=== PATIENT | male | born 1940 | race American Indian/Alaskan Native ===

== ENCOUNTER 2019-01-17 17:49 | Inpatient (IN) | payer MEDICARE, OTHER ==
--- NOTE | 2019-01-17 18:58 | Emergency Department Report ---
HPI - General Chief Complaint: Neuro Symptoms/Deficit Time Seen by Provider: 01/17/19 18:46 - HPI HPI: Room 6 The patient is a 78-year-old male presenting with chief complaint of dysarthria. Family states the patient was in his usual state of health the last normal time 16:30. Family states at 16:56 the patient was found to be dysarthric and EMS was called. Patient denies weakness but complains of pain in his right hip. Location: [See above] Duration: [See above] Quality: [See above] Severity: [See above] Timing: [See above] Context: [See above] Modifying factors: [See above] Associated signs and symptoms: [see above] ED Past Medical Hx - Past Medical History Hx Hypertension: Yes Hx CVA: Yes Hx Heart Attack/AMI: Yes Hx Diabetes: Yes Additional medical history: triple bypass - Surgical History Hx Open Heart Surgery: Yes Hx Internal Defibrillator: Yes Additional Surgical History: back operation, cataract surgery last week - Family History Family history: no significant (Sebastian) - Social History Smoking Status: Former Smoker (none 20 years) Substance Use Type: None - Medications Home Medications: Home Medications Medication Instructions Recorded Confirmed Last Taken Type Carvedilol [Coreg] 3.125 mg PO BID 12/10/12 12/10/12 Unknown History Cilostazol [Pletal] 50 mg PO 12/10/12 12/10/12 Unknown History Clopidogrel [Plavix] 75 mg PO QDAY 12/10/12 12/10/12 Unknown History Dexlansoprazole [Dexilant] 60 mg PO QDAY 12/10/12 12/10/12 Unknown History Dutasteride (Nf) [Avodart (Nf)] 0.5 mg PO 12/10/12 12/10/12 Unknown History Furosemide [Lasix] 20 mg PO DAILY 12/10/12 12/10/12 Unknown History Lisinopril [Zestril TAB] 5 mg PO QDAY 12/10/12 12/10/12 Unknown History Loratadine [Claritin RAPDIS] 10 mg PO QDAY 12/10/12 12/10/12 Unknown History Metformin HCl [metFORMIN ER] 500 mg PO BID 12/10/12 12/10/12 Unknown History Ranitidine HCl [Ranitidine] 150 mg PO BID 12/10/12 12/10/12 Unknown History Simvastatin 20 mg PO QDAY 12/10/12 12/10/12 Unknown History Warfarin [Coumadin] 1 mg PO QDAY 12/10/12 12/10/12 Unknown History Warfarin [Coumadin] 5 mg PO QDAY 12/10/12 12/10/12 Unknown History traMADol [Ultram 50 MG tab] 12/10/12 12/10/12 Unknown History Difluprednate [Durezol 0.05%] 1 drop OD BID 12/11/12 12/11/12 Unknown History Nepafenac [Ilevro 0.3%] 1 drop OD QDAY 12/11/12 12/11/12 Unknown History Aspirin [Aspirin BABY CHEW TAB] 81 mg PO QDAY #60 tab.chew 12/15/12 Unknown Rx Carvedilol [Coreg] 3.125 mg PO BID #60 tablet 12/15/12 Unknown Rx Clopidogrel [Plavix] 75 mg PO QDAY #30 tablet 12/15/12 Unknown Rx Lisinopril [Zestril TAB] 5 mg PO QDAY #30 tablet 12/15/12 Unknown Rx Simvastatin (Nf) [Zocor TAB] 20 mg PO QDAY #30 tablet 12/15/12 Unknown Rx ED Review of Systems ROS: Stated complaint: POSS TIA Other details as noted in HPI Constitutional: no symptoms reported Eyes: denies: eye pain ENT: denies: throat pain Respiratory: no symptoms reported Cardiovascular: denies: chest pain Endocrine: no symptoms reported Neurological: other (dysarthria) Physical Exam - Physical Exam Physical Exam: GENERAL: The patient is well-developed well-nourished male lying on stretcher with obvious dysarthria present HEENT: Normocephalic. Atraumatic. Extraocular motions are intact. Patient has moist mucous membranes. NECK: Supple. Trachea midline CHEST/LUNGS: Clear to auscultation. There is no respiratory distress noted. HEART/CARDIOVASCULAR: Regular. There is no tachycardia. There is no gallop rub or murmur. ABDOMEN: Abdomen is soft, nontender. Patient has normal bowel sounds. There is no abdominal distention. SKIN: There is no rash. There is no edema. There is no diaphoresis. NEURO: The patient is awake, alert, and oriented. The patient is cooperative. Patient experiences left facial droop and the tongue deviates to the left, otherwise cranial nerves II through XII grossly intact. The patient is dysarthric MUSCULOSKELETAL: There is no evidence of acute injury. ED Medical Decision Making - Lab Data Result diagrams: 01/17/19 19:01 01/17/19 19:01 Laboratory Tests 01/17/19 01/17/19 01/17/19 18:58 19:01 19:01 WBC 5.6 RBC 5.39 H Hgb 14.9 Hct 44.6 MCV 83 L MCH 28 MCHC 33 RDW 14.0 Plt Count 165 Lymph % (Auto) 21.1 [place] % (Auto) 10.0 H Eos % (Auto) 2.8 Baso % (Auto) 1.0 Lymph # 1.2 [place] # 0.6 Eos # 0.2 Baso # 0.1 Seg Neutrophils % 65.1 Seg Neutrophils # 3.7 PT 14.3 INR 1.12 APTT 38.4 H Thrombin Time 17.4 Sodium Potassium Chloride Carbon Dioxide Anion Gap BUN Creatinine Estimated GFR BUN/Creatinine Ratio Glucose POC Glucose 213 H Calcium Total Creatine Kinase CK-MB (CK-2) CK-MB (CK-2) Rel Index Troponin T 01/17/19 19:01 WBC RBC Hgb Hct MCV MCH MCHC RDW Plt Count Lymph % (Auto) [place] % (Auto) Eos % (Auto) Baso % (Auto) Lymph # [place] # Eos # Baso # Seg Neutrophils % Seg Neutrophils # PT INR APTT Thrombin Time Sodium 133 L Potassium 5.1 H Chloride 97.1 L Carbon Dioxide 22 Anion Gap 19 BUN 12 Creatinine 0.8 Estimated GFR > 60 BUN/Creatinine Ratio 15 Glucose 225 H POC Glucose Calcium 9.1 Total Creatine Kinase 47 L CK-MB (CK-2) 1.4 CK-MB (CK-2) Rel Index 2.9 Troponin T < 0.010 - EKG Data -: EKG Interpreted by Me Rate: normal - EKG Data When compared to previous EKG there are: previous EKG unavailable Interpretation: nonspecific ST-T wave vishal (T-wave inversions in leads V4, V5, V6, 2, 3, aVF), other (paced rhythm) - Radiology Data Radiology results: report reviewed (CT head (discussed with radiologist)) CT head (discussed with radiologist) (-no acute hemorrhage or acute findings. Evidence of old infarcts present - Differential Diagnosis CVA Critical care attestation.: If time is entered above; I have spent that time in minutes in the direct care of this critically ill patient, excluding procedure time. ED Disposition Clinical Impression: CVA (cerebral vascular accident) Disposition: -09 OP ADMIT IP TO THIS HOSP Is pt being admited?: Yes Condition: Stable Referrals: PRIMARY CARE, [Primary Care Provider] - 3-5 Days Time of Disposition: 23:18 (hospitalist notified (Dr Gordillo))
[2019-01-17 19:08] LABS: Basophils # (Auto) 0.1 K/mm3 (0.0-0.1); Eosinophils # (Auto) 0.2 K/mm3 (0.0-0.4); Eosinophils % (Auto) 2.8 % (0.0-4.3); Hematocrit 44.6 % (35.5-45.6); Hemoglobin 14.9 gm/dl (11.8-15.2); Lymphocytes # (Auto) 1.2 K/mm3 (1.2-5.4); Lymphocytes % (Auto) 21.1 % (13.4-35.0); Mean Corpuscular HGB Conc 33 % (32-34); Mean Corpuscular Volume 83 fl (84-94); Monocytes # (Auto) 0.6 K/mm3 (0.0-0.8); Platelet Count 165 K/mm3 (140-440); Red Blood Count 5.39 M/mm3 (3.65-5.03)
[2019-01-17 19:23] LABS: INR 1.12 (0.87-1.13)
[2019-01-17 19:25] LABS: Partial Thromboplastin Time 38.4 Sec. (24.2-36.6)
[2019-01-17 19:31] LABS: BUN/Creatinine Ratio 15; Blood Urea Nitrogen 12 mg/dL (9-20); Calcium 9.1 mg/dL (8.4-10.2); Hemolysis Index 125
[2019-01-17 19:34] LABS: Creatine Kinase MB 1.4 ng/mL (0.0-4.0)
[2019-01-17] MEDS ORDERED: ALTEPLASE 100 MG INJ KIT IV ONE ×2 (19:35)
[2019-01-17] MEDS ORDERED: SODIUM CHLORIDE 0.9% 50 ML IVPB IV ONE (19:35)
[2019-01-17 19:44] LABS: Thrombin Time 17.4 Sec. (15.1-19.6)
--- NOTE | 2019-01-17 20:16 | Emergency Department Report ---
ED Neuro Deficit HPI - General Chief Complaint: Neuro Symptoms/Deficit Stated Complaint: POSS TIA Time Seen by Provider: 01/17/19 18:46 Source: EMS Mode of arrival: Stretcher Limitations: No Limitations - History of Present Illness Initial Comments: [facility] Date of Service: 01/17/2019 18:48:48 Impression: Right Hemispheric MCA Distribution Mechanism of Stroke: Possible Thromboembolic Possible Cardioembolic Metrics: Last Known Well: 01/17/2019 16:30:00 [employer] Notification Time: 01/17/2019 18:47:51 Arrival Time: 01/17/2019 17:49:00 Stamp Time: 01/17/2019 18:48:48 Time First Login Attempt: 01/17/2019 18:51:49 Video Start Time: 01/17/2019 18:51:49 Symptoms: left facial droop and speech changes NIHSS Start Assessment Time: 01/17/2019 18:54:00 tPA Verbal Order Time: 01/17/2019 19:41:37 Patient is a candidate for tPA. tPA CPOE Order Time: 01/17/2019 19:36:18 Needle Time: 01/17/2019 20:12:53 Weight Noted by Staff: 86.3 kg Video End Time: 01/17/2019 20:13:52 Reason for tPA Delay: Delays related to Imaging tPA Delay Notes: INR reported prior to CT head. Unable to view imaging and had to call to get verbal report on image from ED MD who spoke to the radiologist. Pharmacy was contacted and still looking for the order 20 minutes after it was placed. CT head showed no acute hemorrhage or acute core infarct. CT head was reviewed. Advanced imaging CTA head and neck obtained. ER Physician notified of the decision on thrombolytics management on 01/17/2019 19:45:33 Verbal Consent to tPA: I have explained to the Family the nature of the patients condition, the use of tPA fibrinolytic agent, and the benefits to be reasonably expected compared with alternative approaches. I have discussed the likelihood of major risks or complications of this procedure including (if applicable) but not limited to loss of limb function, brain damage, paralysis, hemorrhage, infection, complications from transfusion of blood components, drug reactions, blood clots and loss of life. I have also indicated that with any procedure there is always the possibility of an unexpected complication. All questions were answered and Family express understanding of the treatment pl an and consent to the treatment. Our recommendations are outlined below. Recommendations: IV tPA recommended. tPA bolus given Without Complication. IV tPA Total Dose 77.7 mg IV tPA Bolus Dose 7.8 mg IV tPA Infusion Dose - 69.9 mg Routine post tPA monitoring including neuro checks and blood pressure control during/after treatment Monitor blood pressure Check blood pressure and NIHSS every 15 min for 2 h, then every 30 min for 6 h, and finally every hour for 16 h. Manage Blood Pressure per post tPA protocol. Admission to ICU CT brain 24 hours post tPA NPO until swallowing screen performed and passed No antiplatelet agents or anticoagulants (including heparin for DVT prophylaxis) in first 24 hours No Gunter catheter, nasogastric tube, arterial catheter or central venous catheter for 24 hr, unless absolutely necessary Telemetry Bedside swallow evaluation HOB less than 30 degrees Euglycemia Avoid hyperthermia, PRN acetaminophen DVT prophylaxis Inpatient Neurology Consultation Stroke evaluation as per inpatient neurology recommendations Additional Recommendations: MRI Head Without Contrast Start Atorvastatin Lipid Panel Check Hgb A1c Dysphagia Screen DVT Prophylaxis Hyperglycemia Treatment as per Primary Team PT/ OT / Speech Therapy Consultation Neurology to Be Consulted for Inpatient Routine Consultation Echocardiogram, TTE Discussed with ED physician History of Present Illness: Patient is a 78 years old Male. Patient was brought by EMS for symptoms of left facial droop and speech changes 78 yo left handed M with history of htn, CAD, hl who is presenting with dysarthria. Patient went out to eat dinner and at 16:56 he got a phone call and he realized that he couldn't speak. He last spoke normally at 16:30. He is on wa rfarin and does not know his last INR but states that he takes it. CT head showed no acute hemorrhage or acute core infarct. CT head was reviewed. Examination: BP(171/81), 1A: Level of Consciousness - Alert; keenly responsive + 0 1B: Ask Month and Age - Both Questions Right + 0 1C: Blink Eyes & Squeeze Hands - Performs Both Tasks + 0 2: Test Horizontal Extraocular Movements - Normal + 0 3: Test Visual Song - No Visual Loss + 0 4: Test Facial Palsy (Use Grimace if Obtunded) - Partial paralysis (lower face) + 2 5A: Test Left Arm Motor Drift - No Drift for 10 Seconds + 0 5B: Test Right Arm Motor Drift - No Drift for 10 Seconds + 0 6A: Test Left Leg Motor Drift - No Drift for 5 Seconds + 0 6B: Test Right Leg Motor Drift - No Drift for 5 Seconds + 0 7: Test Limb Ataxia (FNF/Heel-Alexandra) - No Ataxia + 0 8: Test Sensation - Normal; No sensory loss + 0 9: Test Language/Aphasia - Mild-Moderate Aphasia: Some Obvious Changes, Without Significant Limitation + 1 10: Test Dysarthria - Severe Dysarthria: Unintelligble Slurring or Out of Proportion to Dysphasia + 2 11: Test Extinction/Inattention - No abnormality + 0 NIHSS Score: 5 Patient was informed the Neurology Consult would happen via TeleHealth consult by way of interactive audio and video telecommunications and consented to receiving care in this manner. Due to the immediate potential for life-threatening deterioration due to un derlying acute neurologic illness, I spent 35 minutes providing critical care. This time includes time for face to face visit via telemedicine, review of medical records, imaging studies and discussion of findings with providers, the patient and/or family. Dr Angelita Albre[facility] - Related Data Home Medications: Home Medications Medication Instructions Recorded Confirmed Last Taken Carvedilol [Coreg] 3.125 mg PO BID 12/10/12 12/10/12 Unknown Cilostazol [Pletal] 50 mg PO 12/10/12 12/10/12 Unknown Clopidogrel [Plavix] 75 mg PO QDAY 12/10/12 12/10/12 Unknown Dexlansoprazole [Dexilant] 60 mg PO QDAY 12/10/12 12/10/12 Unknown Dutasteride (Nf) [Avodart (Nf)] 0.5 mg PO 12/10/12 12/10/12 Unknown Furosemide [Lasix] 20 mg PO DAILY 12/10/12 12/10/12 Unknown Lisinopril [Zestril TAB] 5 mg PO QDAY 12/10/12 12/10/12 Unknown Loratadine [Claritin RAPDIS] 10 mg PO QDAY 12/10/12 12/10/12 Unknown Metformin HCl [metFORMIN ER] 500 mg PO BID 12/10/12 12/10/12 Unknown Ranitidine HCl [Ranitidine] 150 mg PO BID 12/10/12 12/10/12 Unknown Simvastatin 20 mg PO QDAY 12/10/12 12/10/12 Unknown Warfarin [Coumadin] 1 mg PO QDAY 12/10/12 12/10/12 Unknown Warfarin [Coumadin] 5 mg PO QDAY 12/10/12 12/10/12 Unknown traMADol [Ultram 50 MG tab] 12/10/12 12/10/12 Unknown Difluprednate [Durezol 0.05%] 1 drop OD BID 12/11/12 12/11/12 Unknown Nepafenac [Ilevro 0.3%] 1 drop OD QDAY 12/11/12 12/11/12 Unknown Previous Rx's Medication Instructions Recorded Last Taken Type Aspirin [Aspirin BABY CHEW TAB] 81 mg PO QDAY #60 tab.chew 12/15/12 Unknown Rx Carvedilol [Coreg] 3.125 mg PO BID #60 tablet 12/15/12 Unknown Rx Clopidogrel [Plavix] 75 mg PO QDAY #30 tablet 12/15/12 Unknown Rx Lisinopril [Zestril TAB] 5 mg PO QDAY #30 tablet 12/15/12 Unknown Rx Simvastatin (Nf) [Zocor TAB] 20 mg PO QDAY #30 tablet 12/15/12 Unknown Rx Allergies/Adverse Reactions: Allergies Allergy/AdvReac Type Severity Reaction Status Date / Time No Known Allergies Allergy Unverified 12/10/12 12:04 ED Review of Systems ROS: Stated complaint: POSS TIA Other details as noted in HPI Constitutional: no symptoms reported Eyes: denies: eye pain ENT: denies: throat pain Respiratory: no symptoms reported Cardiovascular: denies: chest pain Endocrine: no symptoms reported Neurological: other (dysarthria) ED Past Medical Hx - Past Medical History Previous Medical History?: Yes Hx Hypertension: Yes Hx CVA: Yes Hx Heart Attack/AMI: No Hx Congestive Heart Failure: No Hx Diabetes: Yes Hx Deep Vein Thrombosis: No Hx Pulmonary Embolism: No Hx GERD: No Hx Liver Disease: No Hx Renal Disease: No Hx of Cancer: No Hx Sickle Cell Disease: No Hx Arthritis: No Hx Headaches / Migraines: No Hx Seizures: No Hx Kidney Stones: No Hx Psychiatric Treatment: No Hx Asthma: No Hx COPD: No Hx Tuberculosis: No Hx Dementia: No Hx HIV: No Additional medical history: triple bypass - Surgical History Past Surgical History?: Yes Hx Coronary Stent: No Hx Open Heart Surgery: Yes Hx Internal Defibrillator: Yes Hx Cholecystectomy: No Hx Appendectomy: No Hx Breast Surgery: No Additional Surgical History: back operation, cataract surgery last week defib - Social History Smoking Status: Former Smoker Substance Use Type: None - Medications Home Medications: Home Medications Medication Instructions Recorded Confirmed Last Taken Type Carvedilol [Coreg] 3.125 mg PO BID 12/10/12 12/10/12 Unknown History Cilostazol [Pletal] 50 mg PO 12/10/12 12/10/12 Unknown History Clopidogrel [Plavix] 75 mg PO QDAY 12/10/12 12/10/12 Unknown History Dexlansoprazole [Dexilant] 60 mg PO QDAY 12/10/12 12/10/12 Unknown History Dutasteride (Nf) [Avodart (Nf)] 0.5 mg PO 12/10/12 12/10/12 Unknown History Furosemide [Lasix] 20 mg PO DAILY 12/10/12 12/10/12 Unknown History Lisinopril [Zestril TAB] 5 mg PO QDAY 12/10/12 12/10/12 Unknown History Loratadine [Claritin RAPDIS] 10 mg PO QDAY 12/10/12 12/10/12 Unknown History Metformin HCl [metFORMIN ER] 500 mg PO BID 12/10/12 12/10/12 Unknown History Ranitidine HCl [Ranitidine] 150 mg PO BID 12/10/12 12/10/12 Unknown History Simvastatin 20 mg PO QDAY 12/10/12 12/10/12 Unknown History Warfarin [Coumadin] 1 mg PO QDAY 12/10/12 12/10/12 Unknown History Warfarin [Coumadin] 5 mg PO QDAY 12/10/12 12/10/12 Unknown History traMADol [Ultram 50 MG tab] 12/10/12 12/10/12 Unknown History Difluprednate [Durezol 0.05%] 1 drop OD BID 12/11/12 12/11/12 Unknown History Nepafenac [Ilevro 0.3%] 1 drop OD QDAY 12/11/12 12/11/12 Unknown History Aspirin [Aspirin BABY CHEW TAB] 81 mg PO QDAY #60 tab.chew 12/15/12 Unknown Rx Carvedilol [Coreg] 3.125 mg PO BID #60 tablet 12/15/12 Unknown Rx Clopidogrel [Plavix] 75 mg PO QDAY #30 tablet 12/15/12 Unknown Rx Lisinopril [Zestril TAB] 5 mg PO QDAY #30 tablet 12/15/12 Unknown Rx Simvastatin (Nf) [Zocor TAB] 20 mg PO QDAY #30 tablet 12/15/12 Unknown Rx ED Neuro Physical Exam - General Limitations: No Limitations Suspected Stroke: Yes - NIHSS Assessment Interval: Baseline 1a. Level of Consciousness: alert/keenly responsive 1b. LOC Questions: answers both correctly 1c. LOC Commands: performs tasks correctly 2. Best Gaze: normal 3. Visual: no visual loss 4. Facial Palsy: partial paralysis 5b. Motor Arm Right: no drift 5a. Motor Arm Left: no drift 6a. Motor Leg Left: no drift 6b. Motor Leg Right: no drift 7. Limb Ataxia: absent 8. Sensory: normal 9. Best Language: mild/moderate aphasia 10. Dysarthria: severe dysarthria 11. Extinction/Inattention: no abnormality Total Score: 5 Stroke Severity: Moderate Stroke ED Course Vital Signs 01/17/19 19:15 Temperature 98.2 F Pulse Rate 76 Respiratory 12 Rate Blood Pressure 118/96 Blood Pressure 118/76 [Right] O2 Sat by Pulse 100 Oximetry - Lab Data Result diagrams: 01/17/19 19:01 01/17/19 19:01 Lab Results 01/17/19 01/17/19 01/17/19 Range/Units 18:58 19:01 19:01 WBC 5.6 (4.5-11.0) K/mm3 RBC 5.39 H (3.65-5.03) M/mm3 Hgb 14.9 (11.8-15.2) gm/dl Hct 44.6 (35.5-45.6) % MCV 83 L (84-94) fl MCH 28 (28-32) pg MCHC 33 (32-34) % RDW 14.0 (13.2-15.2) % Plt Count 165 (140-440) K/mm3 Lymph % (Auto) 21.1 (13.4-35.0) % [place] % (Auto) 10.0 H (0.0-7.3) % Eos % (Auto) 2.8 (0.0-4.3) % Baso % (Auto) 1.0 (0.0-1.8) % Lymph # 1.2 (1.2-5.4) K/mm3 [place] # 0.6 (0.0-0.8) K/mm3 Eos # 0.2 (0.0-0.4) K/mm3 Baso # 0.1 (0.0-0.1) K/mm3 Seg Neutrophils % 65.1 (40.0-70.0) % Seg Neutrophils # 3.7 (1.8-7.7) K/mm3 PT 14.3 (12.2-14.9) Sec. INR 1.12 (0.87-1.13) APTT 38.4 H (24.2-36.6) Sec. Thrombin Time 17.4 (15.1-19.6) Sec. Sodium (137-145) mmol/L Potassium (3.6-5.0) mmol/L Chloride (98-107) mmol/L Carbon Dioxide (22-30) mmol/L Anion Gap mmol/L BUN (9-20) mg/dL Creatinine (0.8-1.5) mg/dL Estimated GFR ml/min BUN/Creatinine Ratio % Glucose (75-100) mg/dL POC Glucose 213 H (70-105) Calcium (8.4-10.2) mg/dL Total Creatine Kinase (55-170) units/L CK-MB (CK-2) (0.0-4.0) ng/mL CK-MB (CK-2) Rel Index (0-4) Troponin T (0.00-0.029) ng/mL 01/17/19 Range/Units 19:01 WBC (4.5-11.0) K/mm3 RBC (3.65-5.03) M/mm3 Hgb (11.8-15.2) gm/dl Hct (35.5-45.6) % MCV (84-94) fl MCH (28-32) pg MCHC (32-34) % RDW (13.2-15.2) % Plt Count (140-440) K/mm3 Lymph % (Auto) (13.4-35.0) % [place] % (Auto) (0.0-7.3) % Eos % (Auto) (0.0-4.3) % Baso % (Auto) (0.0-1.8) % Lymph # (1.2-5.4) K/mm3 [place] # (0.0-0.8) K/mm3 Eos # (0.0-0.4) K/mm3 Baso # (0.0-0.1) K/mm3 Seg Neutrophils % (40.0-70.0) % Seg Neutrophils # (1.8-7.7) K/mm3 PT (12.2-14.9) Sec. INR (0.87-1.13) APTT (24.2-36.6) Sec. Thrombin Time (15.1-19.6) Sec. Sodium 133 L (137-145) mmol/L Potassium 5.1 H (3.6-5.0) mmol/L Chloride 97.1 L (98-107) mmol/L Carbon Dioxide 22 (22-30) mmol/L Anion Gap 19 mmol/L BUN 12 (9-20) mg/dL Creatinine 0.8 (0.8-1.5) mg/dL Estimated GFR > 60 ml/min BUN/Creatinine Ratio 15 % Glucose 225 H (75-100) mg/dL POC Glucose (70-105) Calcium 9.1 (8.4-10.2) mg/dL Total Creatine Kinase 47 L (55-170) units/L CK-MB (CK-2) 1.4 (0.0-4.0) ng/mL CK-MB (CK-2) Rel Index 2.9 (0-4) Troponin T < 0.010 (0.00-0.029) ng/mL Critical care attestation.: If time is entered above; I have spent that time in minutes in the direct care of this critically ill patient, excluding procedure time. ED Disposition Clinical Impression: CVA (cerebral vascular accident) Disposition: OP ADMIT IP TO THIS HOSP Is pt being admited?: Yes Condition: Stable
--- NOTE | 2019-01-17 23:19 | Cat Scan Report ---
CTA NECK WITH CONTRAST HISTORY: Aphasia COMPARISON: None. TECHNIQUE: Routine CTA of the neck was performed. 3-D/MIP reformats were postprocessed. Percentage s tenosis is determined by direct quantitative measurements of diseased internal carotid artery diamete r compared with normal distal internal carotid artery reference segments or by criteria similar to NA SCET where applicable.All CT scans at this location are performed using CT dose reduction for ALARA b y means of automated exposure control CONTRAST: 100 ml of Omnipaque 350 FINDINGS: This is a very limited CTA. Most of the contrast is in the venous system due to poor IV acc ess. Aortic arch: Aortic arch is not adequately imaged. However, origins of major arteries appear to be no rmal. Cervical vertebral arteries: Right vertebral artery is normal from its origin up to intradural segmen t. However, left vertebral artery is not adequately imaged. Common carotid arteries: Common carotid arteries are not imaged well. Carotid bifurcations: Appear to be normal though they are not adequately imaged. Cervical internal carotid arteries: No significant abnormality. Additional findings: None. IMPRESSION: Extremely limited CTA of the neck due to significant venous contamination Carotid bifurcations appear to be normal. Please repeat the CTA of the neck in the morning. Signer Name: Anushka Arnold MD Signed: 01/17/2019 11:15 PM Workstation Name: [id number]
--- NOTE | 2019-01-17 23:28 | Cat Scan Report ---
CTA HEAD WITH CONTRAST HISTORY: Speech difficulty COMPARISON: None. TECHNIQUE: Routine non-contrast CT Head, CTA of the head and post-contrast CT Head are performed. 3-D /MIP reformats postprocessed. All CT scans at this location are performed using CT dose reduction for ALARA by means of automated exposure control CONTRAST: 100 ml of Omnipaque 350 FINDINGS: This is a limited examination due to venous contamination resulting in suboptimal opacification of in tracranial arteries. CTA Head: Intracranial vertebral arteries: No significant abnormality. Right vertebral artery is the dominant a rtery Basilar artery: No significant abnormality. Basilar tip is normal. Posterior cerebral arteries: No significant abnormality. Right posterior communicating artery continu es as right posterior cerebral artery. Left posterior communicating artery contributing to left poste rior cerebral artery. Intracranial internal carotid arteries: No significant abnormality. Anterior cerebral arteries: No significant abnormality. Left the A1 segment is the dominant artery Middle cerebral arteries: No significant abnormality. Dural venous sinuses:Not optimally opacified. No significant abnormality. Additional findings: None. IMPRESSION: 1. Limited CTA of the brain: [place] is normal. Signer Name: Anushka Arnold MD Signed: 01/17/2019 11:23 PM Workstation Name: [id number]
[2019-01-17] MEDS ORDERED: SODIUM CHLORIDE 0.9% 1000 ML 1,000 ML IV SCH (23:45)
[2019-01-17] MEDS ORDERED: METOCLOPRAMIDE 10 MG TAB PO PRN (23:54)
[2019-01-17] MEDS ORDERED: PROMETHAZINE 25 MG RECT SUPP PR PRN (23:54)
[2019-01-17] MEDS ORDERED: ONDANSETRON 4 MG/2 ML INJ IV PRN (23:54)
[2019-01-17] MEDS ORDERED: MAGNESIUM HYDROXIDE (MOM) ORAL LIQD UDC PO PRN (23:54)
[2019-01-18] MEDS ORDERED: MORPHINE 4 MG/1 ML INJ IV ONE (00:25)
[2019-01-18] MEDS ORDERED: MORPHINE 2 MG/1 ML INJ ONE (00:29)
--- NOTE | 2019-01-18 02:10 | History and Physical Report ---
History of Present Illness Date of examination: 01/17/19 Date of admission: 01/17/19 23:54 Chief complaint: Difficulty with speech History of present illness: Patient is a 78-year-old male with known history of CVA, diabetes mellitus, hypertension and hyperlipidemia presenting to the emergency room today with a sudden onset of inability to speak. He was home with his family when he suddenly dropped his phone. Was brought to the emergency room by EMS and initial CT scan of the head did not show any significant abnormality. He was given TPA. Past History Past Medical History: CAD, diabetes, hyperlipidemia, stroke Past Surgical History: Other (Pacemaker placement, back surgery) Social history: smoking (Quit tobacco use about 20 years ago) Family history: cancer (Mother had lung cancer), diabetes, other (Sister had multiple myeloma) Medications and Allergies Allergies Allergy/AdvReac Type Severity Reaction Status Date / Time No Known Allergies Allergy Unverified 12/10/12 12:04 Home Medications Medication Instructions Recorded Confirmed Last Taken Type Carvedilol [Coreg] 3.125 mg PO BID 12/10/12 12/10/12 Unknown History Dutasteride (Nf) [Avodart (Nf)] 0.5 mg PO DAILY 12/10/12 01/17/19 Unknown History Furosemide [Lasix] 20 mg PO DAILY 12/10/12 12/10/12 Unknown History Metformin HCl [metFORMIN ER] 500 mg PO BID 12/10/12 12/10/12 Unknown History Ranitidine HCl [Ranitidine] 150 mg PO BID 12/10/12 12/10/12 Unknown History Warfarin [Coumadin] 1 mg PO QDAY 12/10/12 12/10/12 Unknown History Warfarin [Coumadin] 2.5 mg PO QDAY 12/10/12 01/17/19 Unknown History traMADol [Ultram 50 MG tab] PO BID 12/10/12 12/10/12 Unknown History Nepafenac [Ilevro 0.3%] 1 drop OD QDAY 12/11/12 12/11/12 Unknown History Aspirin [Aspirin BABY CHEW TAB] 81 mg PO QDAY #60 tab.chew 12/15/12 Unknown Rx Simvastatin (Nf) [Zocor TAB] 20 mg PO QDAY #30 tablet 12/15/12 Unknown Rx Lisinopril [Zestril TAB] 2.5 mg PO QDAY 01/17/19 01/17/19 Unknown History Pentoxifylline 1 tab PO DAILY 01/17/19 01/17/19 Unknown History Active Meds: Active Medications Aspirin (Aspirin) 325 mg PO QDAY [facility]ANC[facility] Bisacodyl (Dulcolax) 10 mg [place] QDAY PRN PRN Reason: Constipation Sodium Chloride (Nacl 0.9% 1000 Ml) 1,000 mls @ 75 mls/hr IV DIRECT FRANCES Last Admin: 01/18/19 02:01 Dose: 75 mls/hr Documented by: Magnesium Hydroxide (Milk Of Magnesia) 30 ml PO Q4H PRN PRN Reason: Constipation Metoclopramide HCl (Reglan) 10 mg PO Q6H PRN PRN Reason: Nausea And Vomiting Ondansetron HCl (Zofran) 4 mg IV Q8H PRN PRN Reason: Nausea And Vomiting Promethazine HCl (Phenergan) 25 mg [place] Q6H PRN PRN Reason: Nausea And Vomiting Sodium Chloride (Sodium Chloride Flush Syringe 10 Ml) 10 ml IV PRN PRN PRN Reason: LINE FLUSH Review of Systems Neurological: aphasia Exam - Constitutional Vitals: Temp Pulse Resp BP Pulse Ox 98.2 F 80 18 118/76 95 01/18/19 02:04 01/18/19 02:04 01/18/19 02:04 01/18/19 02:04 01/18/19 02:04 General appearance: Present: no acute distress, well-nourished - EENT Eyes: Present: PERRL, EOM intact ENT: hearing intact, clear oral mucosa, dentition normal - Neck Neck: Present: supple, normal ROM - Respiratory Respiratory effort: normal Respiratory: bilateral: CTA - Cardiovascular Rhythm: regular Heart Sounds: Present: S1 & S2 - Extremities Extremities: no ischemia, No edema Peripheral Pulses: within normal limits - Abdominal General gastrointestinal: Present: soft, non-tender, non-distended Male genitourinary: Present: normal - Integumentary Integumentary: Present: clear, warm, dry - Musculoskeletal Musculoskeletal: strength equal bilaterally - Psychiatric Psychiatric: appropriate mood/affect, intact judgment & insight - Neurologic Neurologic: CNII-XII intact, focal deficits (Mild facial asymmetry), moves all extremities Results - Labs CBC & Chem 7: 01/17/19 19:01 01/17/19 19:01 Labs: Abnormal lab results 01/17/19 01/17/19 01/17/19 Range/Units 18:58 19:01 19:01 RBC 5.39 H (3.65-5.03) M/mm3 MCV 83 L (84-94) fl [place] % (Auto) 10.0 H (0.0-7.3) % APTT 38.4 H (24.2-36.6) Sec. Sodium (137-145) mmol/L Potassium (3.6-5.0) mmol/L Chloride (98-107) mmol/L Glucose (75-100) mg/dL POC Glucose 213 H (70-105) Total Creatine Kinase (55-170) units/L 01/17/19 01/18/19 Range/Units 19:01 02:02 RBC (3.65-5.03) M/mm3 MCV (84-94) fl [place] % (Auto) (0.0-7.3) % APTT (24.2-36.6) Sec. Sodium 133 L (137-145) mmol/L Potassium 5.1 H (3.6-5.0) mmol/L Chloride 97.1 L (98-107) mmol/L Glucose 225 H (75-100) mg/dL POC Glucose 167 H (70-105) Total Creatine Kinase 47 L (55-170) units/L Assessment and Plan - Patient Problems (1) CVA (cerebral vascular accident) Current Visit: Yes Status: Acute Plan to address problem: Patient has had TPA. We will request neurology evaluation in the a.m. We will monitor mental status. We will schedule speech therapy evaluation. (2) Diabetes Current Visit: Yes Status: Acute Plan to address problem: We will monitor Accu-Cheks and also place the patient on sliding scale insulin. (3) Hyperlipidemia Current Visit: Yes Status: Acute Plan to address problem: We will monitor lipid profile (4) DVT prophylaxis Current Visit: Yes Status: Acute Plan to address problem: We will place on sequential compression device. (5) Full code status Current Visit: Yes Status: Acute
--- NOTE | 2019-01-18 02:16 | Cat Scan Report ---
CT head/brain wo con INDICATION / CLINICAL INFORMATION: neuro deficits <6hrs or sx present upon awakening. TECHNIQUE: Axial CT imaging of the brain was obtained without contrast. Coronal and sagittal reformatted imaging obtained and reviewed. All CT scans at this location are performed using CT dose reduction for ALAR A by means of automated exposure control. COMPARISON: Prior head CT, 12/11/2012 FINDINGS: No intracranial hemorrhage, mass, or midline shift is identified. No extra-axial fluid collection or suggestion of acute territorial infarct. Ventricular system and basilar cisterns are unremarkable. Th ere is encephalomalacia present within the temporal lobes bilaterally, as well as small area within the left cerebellar hemisphere. These findings are stable compared to 2013.. Visualized paranasal sinuses and mastoid air cells are well aerated and clear. IMPRESSION: 1. No acute intracranial abnormality. No interval change from prior head CT of 2012. 2. Please note that a negative head CT does not exclude the possibility of acute CVA and clinical cor relation is recommended. Signer Name: Kim Gunter MD Signed: 01/18/2019 2:11 AM Workstation Name: [id number]
[2019-01-18 06:43] LABS: Chol/HDL Ratio 3.5 %
--- NOTE | 2019-01-18 09:56 | Consultation ---
History of Present Illness Consult date: 01/18/19 Requesting physician: LUCIANA DUGGAN Reason for consult: other (Acute ischemic stroke s/p TPA) History of present illness: Patient is a 78-year-old male with known history of CVA, diabetes mellitus, hypertension and hyperlipidemia presenting to the emergency room today with a sudden onset of inability to speak. He was home with his family when he suddenly dropped his phone. Was brought to the emergency room by EMS and initial CT scan of the head did not show any significant abnormality. He was given TPA. He has been admitted to the ICU fro on going care post TPA I have been consulted fro critical care managment. Thank you Patient was seen and examined. Vitals, labs, medications,, chart and imaging were reviewed. He has expressive aphasia, but is resting comfortable in bed. Family at the bedside - Past Medical History Hx Hypertension: Yes Hx CVA: Yes Hx Heart Attack/AMI: Yes Hx Diabetes: Yes Additional medical history: triple bypass - Surgical History Hx Open Heart Surgery: Yes Hx Internal Defibrillator: Yes Additional Surgical History: back operation, cataract surgery last week - Family History Family history: no significant ([place]) - Social History Smoking Status: Former Smoker (none 20 years) Substance Use Type: None - Medications Home Medications: -Reviewed, on coumadin Past History Past Medical History: CAD, diabetes, hyperlipidemia, stroke Past Surgical History: Other (Pacemaker placement, back surgery) Social history: smoking (Quit tobacco use about 20 years ago) Family history: cancer (Mother had lung cancer), diabetes, other (Sister had multiple myeloma) Medications and Allergies Allergies Allergy/AdvReac Type Severity Reaction Status Date / Time No Known Allergies Allergy Unverified 12/10/12 12:04 Home Medications Medication Instructions Recorded Confirmed Last Taken Type Carvedilol [Coreg] 3.125 mg PO BID 12/10/12 01/18/19 Unknown History Dutasteride (Nf) [Avodart (Nf)] 0.5 mg PO DAILY 12/10/12 01/17/19 Unknown History Furosemide [Lasix] 20 mg PO DAILY 12/10/12 01/18/19 Unknown History Metformin HCl [metFORMIN ER] 500 mg PO BID 12/10/12 01/18/19 Unknown History Ranitidine HCl [Ranitidine] 150 mg PO BID 12/10/12 01/18/19 Unknown History Warfarin [Coumadin] 1 mg PO QDAY 12/10/12 01/18/19 Unknown History Warfarin [Coumadin] 2.5 mg PO QDAY 12/10/12 01/17/19 Unknown History traMADol [Ultram 50 MG tab] 50 mg PO BID 12/10/12 01/18/19 Unknown History Nepafenac [Ilevro 0.3%] 1 drop OD QDAY 12/11/12 01/18/19 Unknown History Aspirin [Aspirin BABY CHEW TAB] 81 mg PO QDAY #60 tab.chew 12/15/12 01/18/19 Unknown Rx Simvastatin (Nf) [Zocor TAB] 20 mg PO QDAY #30 tablet 12/15/12 01/18/19 Unknown Rx Lisinopril [Zestril TAB] 2.5 mg PO QDAY 01/17/19 01/17/19 Unknown History Pentoxifylline 1 tab PO DAILY 01/17/19 01/17/19 Unknown History Active Meds: Active Medications Aspirin (Aspirin) 325 mg PO QDAY [facility] Atorvastatin Calcium (Lipitor) 40 mg PO QHS [facility] Bisacodyl (Dulcolax) 10 mg [place] QDAY PRN PRN Reason: Constipation Sodium Chloride (Nacl 0.9% 1000 Ml) 1,000 mls @ 75 mls/hr IV DIRECT FRANCES Last Admin: 01/18/19 02:01 Dose: 75 mls/hr Documented by: Magnesium Hydroxide (Milk Of Magnesia) 30 ml PO Q4H PRN PRN Reason: Constipation Metoclopramide HCl (Reglan) 10 mg PO Q6H PRN PRN Reason: Nausea And Vomiting Ondansetron HCl (Zofran) 4 mg IV Q8H PRN PRN Reason: Nausea And Vomiting Promethazine HCl (Phenergan) 25 mg [place] Q6H PRN PRN Reason: Nausea And Vomiting Sodium Chloride (Sodium Chloride Flush Syringe 10 Ml) 10 ml IV PRN PRN PRN Reason: LINE FLUSH Physical Examination Vital signs: Vital Signs Pulse Resp Pulse Ox 83 21 96 01/17/19 19:13 01/17/19 19:13 01/17/19 19:13 Vitals Reviewed. General appearance: Present: no acute distress, well-nourished - EENT Eyes: Present: PERRL, EOM intact ENT: hearing intact, clear oral mucosa, dentition normal Expressive aphasia - Neck Neck: Present: supple, normal ROM - Respiratory Respiratory effort: normal Respiratory: bilateral: CTA - Cardiovascular Anterior chest wall post midline sternotomy scar with left sided cardiac device Rhythm: regular Heart Sounds: Present: S1 & S2 - Extremities Extremities: no ischemia, No edema Peripheral Pulses: within normal limits - Abdominal General gastrointestinal: Present: soft, non-tender, non-distended Male genitourinary: Present: normal - Integumentary Integumentary: Present: clear, warm, dry Bilateral upper extremity erythema and swelling around old IV peripheral sites - Musculoskeletal Musculoskeletal: - Psychiatric Psychiatric: appropriate mood/affect - Neurologic Neurologic: facial droop , expressive aphasia and dysarthria Results - Laboratory Findings CBC and BMP: 01/17/19 19:01 01/17/19 19:01 PT/INR, D-dimer PT 14.3 Sec. 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 brain 24 hours post tPA NPO until swallowing screen performed and passed No antiplatelet agents or anticoagulants (including heparin for DVT prophylaxis) in first 24 hours No Gunter catheter, nasogastric tube, arterial catheter or central venous catheter for 24 hr Bedside swallow evaluation HOB less than 30 degrees Euglycemia- accucheck with glycemic control Avoid hyperthermia, PRN acetaminophen DVT prophylaxis, hold Coumadin. Patient is on Coumadin unclear why. Discussed with daughter, she will get more details from his community [employer] Neurology Consultation Secondary stroke prophylaxis MRI Head Without Contrast Fasting Lipid Panel, HgB A1C PT/ OT / Speech language pathologist to evaluate and treat Echocardiogram, TTE Mobility and off loading for pressure ulcer prevention Wound care to evaluate the skin tears and upper extremities CONDITION: CRITICAL PROGNOSIS: GUARDED CODE STATUS: FULL CODE Discussed extensively with the patient and his family, including the daughter over the phone Discussed with RN The high probability of a clinically significant, sudden or life-threatening deterioration of the [cardiovascular, neurology] system(s) required my full and direct attention, intervention and personal management. The aggregate critical care time was [40] minutes without overlap. Time includes spent on; [x] Data Review and interpretation [x] Patient assessment and monitoring of vital signs [x] Documentation
--- NOTE | 2019-01-18 12:41 | Progress Note ---
Assessment and Plan Assessment and plan: (1) CVA (cerebral vascular accident) Patient has had TPA. Neurology consultation We will schedule speech therapy evaluation. (2) Diabetes We will monitor Accu-Cheks and also place the patient on sliding scale insulin. (3) Hyperlipidemia We will monitor lipid profile (4) DVT prophylaxis Continued SCDs History Interval history: No new issues overnight Hospitalist Physical - Constitutional Vitals: Temp Pulse Resp BP Pulse Ox 97.7 F 73 13 138/74 95 01/18/19 08:00 01/18/19 10:00 01/18/19 10:00 01/18/19 10:00 01/18/19 10:00 General appearance: Present: no acute distress, well-nourished - EENT Eyes: Present: PERRL, EOM intact ENT: hearing intact, clear oral mucosa, dentition normal - Neck Neck: Present: supple, normal ROM - Respiratory Respiratory effort: normal Respiratory: bilateral: CTA - Cardiovascular Rhythm: regular Heart Sounds: Present: S1 & S2. Absent: gallop, rub - Extremities Extremities: no ischemia, No edema, Full ROM - Abdominal General gastrointestinal: soft, non-tender, non-distended, normal bowel sounds - Integumentary Integumentary: Present: clear, warm, dry - Neurologic Neurologic: CNII-XII intact, moves all extremities Results - Labs CBC & Chem 7: 01/17/19 19:01 01/17/19 19: Labs: Laboratory Last Values WBC 5.6 K/mm3 (4.5-11.0) 01/17/19 19: RBC 5.39 M/mm3 (3.65-5.03) H 01/17/19 19: Hgb 14.9 gm/dl (11.8-15.2) 01/17/19 19: Hct 44.6 % (35.5-45.6) 01/17/19 19: MCV 83 fl (84-94) L 01/17/19 19: MCH 28 pg (28-32) 01/17/19 19: MCHC 33 % (32-34) 01/17/19 19: RDW 14.0 % (13.2-15.2) 01/17/19 19: Plt Count 165 K/mm3 (140-440) 01/17/19 19: Lymph % (Auto) 21.1 % (13.4-35.0) 01/17/19 19: [place] % (Auto) 10.0 % (0.0-7.3) H 01/17/19 19: Eos % (Auto) 2.8 % (0.0-4.3) 01/17/19 19: Baso % (Auto) 1.0 % (0.0-1.8) 01/17/19 19: Lymph # 1.2 K/mm3 (1.2-5.4) 01/17/19 19: [place] # 0.6 K/mm3 (0.0-0.8) 01/17/19: Eos # 0.2 K/mm3 (0.0-0.4) 01/17/19 19: Baso # 0.1 K/mm3 (0.0-0.1) 01/17/19 19: Seg Neutrophils % 65.1 % (40.0-70.0) 01/17/19 19: Seg Neutrophils # 3.7 K/mm3 (1.8-7.7) 01/17/19 19: PT 14.3 Sec. (12.2-14.9) 01/17/19: INR 1.12 (0.87-1.13) 01/17/19 19: APTT 38.4 Sec. (24.2-36.6) H 01/17/19: Thrombin Time 17.4 Sec. (15.1-19.6) 01/17/19 19: Sodium 133 mmol/L (137-145) L 01/17/19 19: Potassium 5.1 mmol/L (3.6-5.0) H 01/17/19 19: Chloride 97.1 mmol/L (98-107) L 01/17/19: Carbon Dioxide 22 mmol/L (22-30) 01/17/19: Anion Gap 19 mmol/L 01/17/19 19: BUN 12 mg/dL (9-20) 01/17/19 19: Creatinine 0.8 mg/dL (0.8-1.5) 01/17/19 19: Estimated GFR > 60 ml/min 01/17/19 19:01 BUN/Creatinine Ratio 15 % 01/17/19 19:01 Glucose 225 mg/dL (75-100) H 01/17/19 19:01 POC Glucose 212 (70-105) H 01/18/19 11:55 Calcium 9.1 mg/dL (8.4-10.2) 01/17/19 19:01 Total Creatine Kinase 47 units/L (55-170) L 01/17/19 19:01 CK-MB (CK-2) 1.4 ng/mL (0.0-4.0) 01/17/19 19:01 CK-MB (CK-2) Rel Index 2.9 (0-4) 01/17/19 19:01 Troponin T < 0.010 ng/mL (0.00-0.029) 01/17/19 19:01 Triglycerides 125 mg/dL (2-149) 01/18/19 05:39 Cholesterol 168 mg/dL (50-199) 01/18/19 05:39 LDL Cholesterol Direct 110 mg/dL (50-130) 01/18/19 05:39 HDL Cholesterol 48 mg/dL (40-59) 01/18/19 05:39 Cholesterol/HDL Ratio 3.50 % 01/18/19 05:39 Active Medications - Current Medications Current Medications: Generic Name Dose Route Start Last Admin Trade Name Freq PRN Reason Stop Dose Admin Aspirin 325 mg 01/18/19 22:00 Aspirin PO QDAY [facility] Atorvastatin Calcium 40 mg 01/18/19 22:00 Lipitor PO QHS [facility] Bisacodyl 10 mg 01/17/19 23:54 Dulcolax [place] QDAY PRN Constipation Sodium Chloride 1,000 mls @ 75 mls/hr 01/17/19 23:45 01/18/19 02:01 Nacl 0.9% 1000 Ml IV 75 mls/hr DIRECT [facility] Administration Magnesium Hydroxide 30 ml 01/17/19 23:54 Milk Of Magnesia PO Q4H PRN Constipation Metoclopramide HCl 10 mg 01/17/19 23:54 Reglan PO Q6H PRN Nausea And Vomiting Ondansetron HCl 4 mg 01/17/19 23:54 Zofran IV Q8H PRN Nausea And Vomiting Promethazine HCl 25 mg 01/17/19 23:54 Phenergan [place] Q6H PRN Nausea And Vomiting Sodium Chloride 10 ml 01/17/19 23:54 Sodium Chloride Flush Syringe 10 Ml IV PRN PRN LINE FLUSH
[2019-01-18] MEDS: traMADol 50 MG TAB PO PRN (20:56)
[2019-01-18] MEDS: ASPIRIN 325 MG TAB PO SCH (21:01)
--- NOTE | 2019-01-19 08:43 | Progress Note ---
Assessment and Plan -Acute CVA s/p tPA -Expressive aphasia -Type 2 DM -h/o CAD s/p CABG -Secondary stroke prophylaxis -Get MRI and Neurology consult -PT/OT -Modified diet with aspiration precautions -Chronic home medications -VTE prophylaxis -Falls precautions -Had discussions with his PMD over the phone- his PMD states the patient has been on Coumadin for dilated cardiomyopathy. The patient was scheduled for an office appointment for INR monitoring prior to this incident. He also states the patient had CABG many years ago and he generally runs low blood pressures Discussed and updated the patient and his family Discussed in ICU-IDT rounds -Patient is stable for transfer to telemetry CONDITION: CRITICAL PROGNOSIS: GUARDED CODE STATUS: FULL CODE Subjective Date of service: 01/19/19 Interval history: Patient is seen today for: Acute ischemic stroke s/p TPA Seen and examined at bedside; 24hour events reviewed; nursing and respiratory care staff consulted; no adverse overnight events reported to me; speech is improving though dysarthric, no nausea or vomiting, no fevers, chills. Awaiting MRI of the brain Family at the bedside Objective - Exam Narrative Exam: Vitals Reviewed. General appearance: Present: no acute distress, well-nourished - EENT Eyes: Present: PERRL, EOM intact ENT: hearing intact, clear oral mucosa, dentition normal Expressive aphasia - Neck Neck: Present: supple, normal ROM - Respiratory Respiratory effort: normal Respiratory: bilateral: CTA - Cardiovascular Anterior chest wall post midline sternotomy scar with left sided cardiac device Rhythm: regular Heart Sounds: Present: S1 & S2 - Extremities Extremities: no ischemia, No edema Peripheral Pulses: within normal limits - Abdominal General gastrointestinal: Present: soft, non-tender, non-distended Male genitourinary: Present: normal - Integumentary Integumentary: Present: clear, warm, dry Bilateral upper extremity erythema and swelling around old IV peripheral sites - Musculoskeletal Musculoskeletal: - Psychiatric Psychiatric: appropriate mood/affect - Neurologic Neurologic: facial droop and dysarthria Vital Signs - 12hr 01/18/19 01/18/19 01/18/19 20:50 21:00 21:10 Temperature Pulse Rate 67 70 61 Pulse Rate [ Right Arm] Respiratory 16 16 17 Rate Respiratory Rate [Back] Respiratory Rate [Right Arm ] Blood Pressure 157/67 149/71 149/71 Blood Pressure [Right Arm] O2 Sat by Pulse Oximetry O2 Sat by Pulse Oximetry [ Right Arm] 01/18/19 01/18/19 01/18/19 21:20 21:30 21:40 Temperature Pulse Rate 67 74 73 Pulse Rate [ Right Arm] Respiratory 16 11 L 12 Rate Respiratory Rate [Back] Respiratory Rate [Right Arm ] Blood Pressure 157/67 157/67 157/67 Blood Pressure [Right Arm] O2 Sat by Pulse 99 Oximetry O2 Sat by Pulse Oximetry [ Right Arm] 01/18/19 01/18/19 01/18/19 21:50 22:00 22:10 Temperature Pulse Rate 80 69 69 Pulse Rate [ 69 Right Arm] Respiratory 23 14 15 Rate Respiratory 12 Rate [Back] Respiratory 14 Rate [Right Arm ] Blood Pressure 149/71 149/71 159/63 Blood Pressure 149/71 [Right Arm] O2 Sat by Pulse 98 98 95 Oximetry O2 Sat by Pulse 98 Oximetry [ Right Arm] 01/18/19 01/18/19 01/18/19 22:14 22:20 22:29 Temperature Pulse Rate 68 67 64 Pulse Rate [ Right Arm] Respiratory 15 8 L Rate Respiratory Rate [Back] Respiratory Rate [Right Arm ] Blood Pressure 159/63 159/63 Blood Pressure [Right Arm] O2 Sat by Pulse 96 99 Oximetry O2 Sat by Pulse Oximetry [ Right Arm] 01/18/19 01/18/19 01/18/19 22:30 22:40 22:50 Temperature Pulse Rate 75 72 77 Pulse Rate [ Right Arm] Respiratory 10 L 10 L 13 Rate Respiratory Rate [Back] Respiratory Rate [Right Arm ] Blood Pressure 159/63 159/63 159/63 Blood Pressure [Right Arm] O2 Sat by Pulse 96 98 Oximetry O2 Sat by Pulse Oximetry [ Right Arm] 01/18/19 01/18/19 01/18/19 23:00 23:10 23:20 Temperature Pulse Rate 80 79 76 Pulse Rate [ Right Arm] Respiratory 14 14 13 Rate Respiratory Rate [Back] Respiratory Rate [Right Arm ] Blood Pressure 159/63 146/87 146/87 Blood Pressure [Right Arm] O2 Sat by Pulse Oximetry O2 Sat by Pulse Oximetry [ Right Arm] 01/18/19 01/18/19 01/18/19 23:30 23:40 23:50 Temperature Pulse Rate 63 73 60 Pulse Rate [ Right Arm] Respiratory 20 17 15 Rate Respiratory Rate [Back] Respiratory Rate [Right Arm ] Blood Pressure 146/87 146/87 146/87 Blood Pressure [Right Arm] O2 Sat by Pulse Oximetry O2 Sat by Pulse Oximetry [ Right Arm] 01/19/19 01/19/19 01/19/19 00:00 00:10 00:20 Temperature 98.4 F Pulse Rate 67 73 68 Pulse Rate [ Right Arm] Respiratory 11 L 14 13 Rate Respiratory Rate [Back] Respiratory Rate [Right Arm ] Blood Pressure 146/87 140/73 140/73 Blood Pressure [Right Arm] O2 Sat by Pulse Oximetry O2 Sat by Pulse Oximetry [ Right Arm] 01/19/19 01/19/19 01/19/19 00:30 00:40 00:50 Temperature Pulse Rate 71 75 82 Pulse Rate [ Right Arm] Respiratory 19 15 18 Rate Respiratory Rate [Back] Respiratory Rate [Right Arm ] Blood Pressure 140/73 140/73 140/73 Blood Pressure [Right Arm] O2 Sat by Pulse Oximetry O2 Sat by Pulse Oximetry [ Right Arm] 01/19/19 01/19/19 01/19/19 01:00 01:10 01:20 Temperature Pulse Rate 73 63 60 Pulse Rate [ Right Arm] Respiratory 13 18 10 L Rate Respiratory Rate [Back] Respiratory Rate [Right Arm ] Blood Pressure 157/65 157/65 157/65 Blood Pressure [Right Arm] O2 Sat by Pulse Oximetry O2 Sat by Pulse Oximetry [ Right Arm] 01/19/19 01/19/19 01/19/19 01:30 01:40 01:50 Temperature Pulse Rate 63 60 66 Pulse Rate [ Right Arm] Respiratory 18 17 18 Rate Respiratory Rate [Back] Respiratory Rate [Right Arm ] Blood Pressure 157/65 157/65 157/65 Blood Pressure [Right Arm] O2 Sat by Pulse Oximetry O2 Sat by Pulse Oximetry [ Right Arm] 01/19/19 01/19/19 01/19/19 02:00 02:10 02:20 Temperature Pulse Rate 63 61 71 Pulse Rate [ 63 Right Arm] Respiratory 14 12 13 Rate Respiratory Rate [Back] Respiratory 14 Rate [Right Arm ] Blood Pressure 157/65 138/60 138/60 Blood Pressure 157/65 [Right Arm] O2 Sat by Pulse Oximetry O2 Sat by Pulse 99 Oximetry [ Right Arm] 01/19/19 01/19/19 01/19/19 02:30 02:40 02:50 Temperature Pulse Rate 69 70 63 Pulse Rate [ Right Arm] Respiratory 16 14 18 Rate Respiratory Rate [Back] Respiratory Rate [Right Arm ] Blood Pressure 138/60 138/60 138/60 Blood Pressure [Right Arm] O2 Sat by Pulse Oximetry O2 Sat by Pulse Oximetry [ Right Arm] 01/19/19 01/19/19 01/19/19 03:00 03:10 03:20 Temperature Pulse Rate 66 65 Pulse Rate [ Right Arm] Respiratory 10 L 13 13 Rate Respiratory Rate [Back] Respiratory Rate [Right Arm ] Blood Pressure 138/60 137/64 137/64 Blood Pressure [Right Arm] O2 Sat by Pulse 98 99 Oximetry O2 Sat by Pulse Oximetry [ Right Arm] 01/19/19 01/19/19 01/19/19 03:30 03:40 03:50 Temperature Pulse Rate 68 61 66 Pulse Rate [ Right Arm] Respiratory 14 12 15 Rate Respiratory Rate [Back] Respiratory Rate [Right Arm ] Blood Pressure 137/64 137/64 137/64 Blood Pressure [Right Arm] O2 Sat by Pulse 96 100 95 Oximetry O2 Sat by Pulse Oximetry [ Right Arm] 01/19/19 01/19/19 01/19/19 04:00 04:10 04:20 Temperature 97.7 F Pulse Rate 60 68 64 Pulse Rate [ 60 Right Arm] Respiratory 11 L 16 13 Rate Respiratory Rate [Back] Respiratory 11 L Rate [Right Arm ] Blood Pressure 137/64 106/53 106/53 Blood Pressure 137/64 [Right Arm] O2 Sat by Pulse 99 93 97 Oximetry O2 Sat by Pulse 99 Oximetry [ Right Arm] 01/19/19 01/19/19 01/19/19 04:30 04:40 04:50 Temperature Pulse Rate 63 68 64 Pulse Rate [ Right Arm] Respiratory 12 13 15 Rate Respiratory Rate [Back] Respiratory Rate [Right Arm ] Blood Pressure 106/53 106/53 106/53 Blood Pressure [Right Arm] O2 Sat by Pulse 98 95 99 Oximetry O2 Sat by Pulse Oximetry [ Right Arm] 01/19/19 01/19/19 01/19/19 05:00 05:10 05:20 Temperature Pulse Rate 60 61 60 Pulse Rate [ Right Arm] Respiratory 16 15 15 Rate Respiratory Rate [Back] Respiratory Rate [Right Arm ] Blood Pressure 104/48 104/48 104/48 Blood Pressure [Right Arm] O2 Sat by Pulse 98 97 100 Oximetry O2 Sat by Pulse Oximetry [ Right Arm] 01/19/19 01/19/19 01/19/19 05:30 05:40 05:50 Temperature Pulse Rate 60 62 67 Pulse Rate [ Right Arm] Respiratory 13 16 15 Rate Respiratory Rate [Back] Respiratory Rate [Right Arm ] Blood Pressure 104/48 104/48 104/48 Blood Pressure [Right Arm] O2 Sat by Pulse 96 100 94 Oximetry O2 Sat by Pulse Oximetry [ Right Arm] 01/19/19 01/19/19 06:00 06:10 Temperature Pulse Rate 63 71 Pulse Rate [ 63 Right Arm] Respiratory 20 19 Rate Respiratory Rate [Back] Respiratory 20 Rate [Right Arm ] Blood Pressure 104/48 92/53 Blood Pressure 104/48 [Right Arm] O2 Sat by Pulse 99 95 Oximetry O2 Sat by Pulse 99 Oximetry [ Right Arm] CBC and BMP: 01/17/19 19:01 01/17/19 19:01 ABG, PT/INR, D-dimer: PT/INR, D-dimer PT 14.3 Sec. (12.2-14.9) 01/17/19 19:01 INR 1.12 (0.87-1.13) 01/17/19 19:01 Abnormal lab findings: Abnormal Labs 01/17/19 01/17/19 01/17/19 18:58 19:01 19:01 RBC 5.39 H MCV 83 L [place] % (Auto) 10.0 H APTT 38.4 H Sodium Potassium Chloride Glucose POC Glucose 213 H Total Creatine Kinase 01/17/19 01/18/19 01/18/19 19:01 02:02 05:36 RBC MCV [place] % (Auto) APTT Sodium 133 L Potassium 5.1 H Chloride 97.1 L Glucose 225 H POC Glucose 167 H 163 H Total Creatine Kinase 47 L 01/18/19 01/18/19 01/19/19 11:55 18:33 06:48 RBC MCV [place] % (Auto) APTT Sodium Potassium Chloride Glucose POC Glucose 212 H 169 H 159 H Total Creatine Kinase
[2019-01-19] MEDS: ASPIRIN 325 MG TAB PO SCH (10:15)
[2019-01-19] MEDS: traMADol 50 MG TAB PO PRN ×2 (10:16→21:24)
--- NOTE | 2019-01-19 11:07 | Consultation ---
Past History Past Medical History: CAD, diabetes, hyperlipidemia, stroke Past Surgical History: Other (Pacemaker placement, back surgery) Social history: smoking (Quit tobacco use about 20 years ago) Family history: cancer (Mother had lung cancer), diabetes, other (Sister had multiple myeloma) Medications and Allergies Allergies Allergy/AdvReac Type Severity Reaction Status Date / Time No Known Allergies Allergy Unverified 12/10/12 12:04 Home Medications Medication Instructions Recorded Confirmed Last Taken Type Dutasteride (Nf) [Avodart (Nf)] 0.5 mg PO DAILY 12/10/12 01/17/19 Unknown History Furosemide [Lasix] 20 mg PO DAILY 12/10/12 01/18/19 Unknown History Metformin HCl [metFORMIN ER] 500 mg PO BID 12/10/12 01/18/19 Unknown History Ranitidine HCl [Ranitidine] 150 mg PO BID 12/10/12 01/18/19 Unknown History Warfarin [Coumadin] 1 mg PO QDAY 12/10/12 01/18/19 Unknown History Warfarin [Coumadin] 2.5 mg PO QDAY 12/10/12 01/17/19 Unknown History carvediloL [Coreg] 3.125 mg PO BID 12/10/12 01/18/19 Unknown History traMADol [Ultram 50 MG tab] 50 mg PO BID 12/10/12 01/18/19 Unknown History Nepafenac [Ilevro 0.3%] 1 drop OD QDAY 12/11/12 01/18/19 Unknown History Aspirin [Aspirin BABY CHEW TAB] 81 mg PO QDAY #60 tab.chew 12/15/12 01/18/19 Unknown Rx Simvastatin (Nf) [Zocor TAB] 20 mg PO QDAY #30 tablet 12/15/12 01/18/19 Unknown Rx Lisinopril [Zestril TAB] 2.5 mg PO QDAY 01/17/19 01/17/19 Unknown History Pentoxifylline 1 tab PO DAILY 01/17/19 01/17/19 Unknown History Active Meds: Active Medications Aspirin (Aspirin) 325 mg PO QDAY [facility] Last Admin: 01/19/19 10:15 Dose: 325 mg Documented by: Atorvastatin Calcium (Lipitor) 40 mg PO QHS [facility] Last Admin: 01/18/19 21:01 Dose: 40 mg Documented by: Bisacodyl (Dulcolax) 10 mg ME QDAY PRN PRN Reason: Constipation Magnesium Hydroxide (Milk Of Magnesia) 30 ml PO Q4H PRN PRN Reason: Constipation Metoclopramide HCl (Reglan) 10 mg PO Q6H PRN PRN Reason: Nausea And Vomiting Ondansetron HCl (Zofran) 4 mg IV Q8H PRN PRN Reason: Nausea And Vomiting Promethazine HCl (Phenergan) 25 mg ME Q6H PRN PRN Reason: Nausea And Vomiting Sodium Chloride (Sodium Chloride Flush Syringe 10 Ml) 10 ml IV PRN PRN PRN Reason: LINE FLUSH Tramadol HCl (Ultram) 50 mg PO Q12HR PRN PRN Reason: Pain, Moderate (4-6) Last Admin: 01/19/19 10:16 Dose: 50 mg Documented by: Physical Examination - Vital Signs Vital Signs: Vital Signs Pulse Resp Pulse Ox 83 21 96 01/17/19 19:13 01/17/19 19:13 01/17/19 19:13 Results - Laboratory Findings CBC and BMP: 01/17/19 19:01 01/17/19 19:01 Abnormal Lab Findings: Abnormal Labs 01/17/19 01/17/19 01/17/19 18:58 19:01 19:01 RBC 5.39 H MCV 83 L [place] % (Auto) 10.0 H APTT 38.4 H Sodium Potassium Chloride Glucose POC Glucose 213 H Total Creatine Kinase 01/17/19 01/18/19 01/18/19 19:01 02:02 05:36 RBC MCV [place] % (Auto) APTT Sodium 133 L Potassium 5.1 H Chloride 97.1 L Glucose 225 H POC Glucose 167 H 163 H Total Creatine Kinase 47 L 01/18/19 01/18/19 01/19/19 11:55 18:33 06:48 RBC MCV [place] % (Auto) APTT Sodium Potassium Chloride Glucose POC Glucose 212 H 169 H 159 H Total Creatine Kinase Assessment and Plan 78 YEAR OLD WITH HISTORY OF HYPERTENSION,DIABETES,OLD STROKE,HYPERLIPEDEMIA, WHO HAD BEEN ON ASPIRIN,PLAVIX AND COUMADIN DEVELOPED A SUDDEN ONSET OF SLURRED SPEECH ASSOCIATED WITH LEFT FACIAL DROOP AND MILD RIGHT SIDED WEAKNESS, WHEN HE WAS NOT ABLE TO CONTINUE WRITING ON 01/17/2019 LATE AFTERNOON. HE WAS BROUGHT TO THE HOSPITAL AND FOR BEING IN THE WINDOW PERIOD WAS GIVEN TPA. PATIENT REPORTED SIGNIFICANT IMPROVEMENT IN FEW HRS AFTER TPA ADMINISTRATION.CT SCAN OF THE HEAD DID NOT SHOW ANY ACUTE HEMORRHAGE OR INFARCT.PATIENT'S FAMILY MEMBERS AND WELL PATIENT REPORTED THAT HE WAS COMPLIANT WITH ALL MEDICATION, SUCH ASPIRIN AND PLAVIX AND STATIN. HIS LIPID PROFILES ARE WITH IN NORMAL LIMIT ON LIPITOR 20 MG A DAY. PHYSICAL EXAMINATION. GENERAL- IN NO ACUTE DISTRESS. PATIENT IS ALERT AND APPROPRIATE AND ANSWERS QUESTIONS APPROPRIATELY SPEECH- NO APHASIA,SLIGHTLY DYSARTHRIC HEART-NORMAL RATE AND RHYTHM, CAROTIDS-BOTH PALPABLE CRANIAL NERVES- PUPILS REACT TO LIGHT, EXTRA OCULAR MOVEMENTS ARE INTACT.NO FACIAL ASYMMETRY OR WEAKNESS. TONGUE IS SLIGHLTY DEVIATED TO THE LEFT. MOTOR- VERY MILD RIGHT SIDED WEAKNESS WITH INCREASED MUSCLE TONE ON THE RT SIDE REFLEXES- REFLEXES RE SLIGHTLY INCREASED ON THE RIGHT WITH UP GOING TOE ON THE RIGHT SIDE. SENSORY- GROSSLY INTACT. IMPRESSION 1. PATIENT SEEMS TO HAVE INFARCT IN THE LEFT BRAINSTEM,SMALL VESSEL DISEASE MOST LIKELY FROM CHRONIC HYPERTENSION AND POOR CONTROL OF DIABETES. RECOMMEND. 1. AGREE WITH MRI WITHOUT CONTRAST TO LOOK FOR EVIDENCE OF INFARCT IN THE LEFT LOWER BRAIN STEM 2. NO NEED FOR ADDING OR SUBTRACTING ANY MEDICATION GIVEN BY HIS PRIMARY CARE PHYSICIAN,CONTINUE ASPIRIN,PLAVIX AND STATIN PRESCRIBED. 3. PATIENT TO HAVE BETTER CONTROL OF DIABETES AND HYPERTENSION, MAY CONSIDER SWITCHING TO INSULIN IF METFORMIN AND DIET IS NOT CONTROLLING DIABETES ADEQUATELY. THIS DECISION NEEDS TO BE MADE BY HIS PRIMARY CARE PHYSICIAN.
--- NOTE | 2019-01-19 13:42 | Progress Note ---
Assessment and Plan Assessment and plan: CVA (cerebral vascular accident) Patient has had TPA. 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 Continue aspirin, Plavix and statin. Hypertension. Continue antihypertensive medication Diabetes We will monitor Accu-Cheks and also place the patient on sliding scale insulin. Add Lantus at bedtime Hyperlipidemia Continue statins DVT prophylaxis Continued SCDs History Interval history: No new issues overnight Hospitalist Physical - Constitutional Vitals: Temp Pulse Resp BP Pulse Ox 97.7 F 76 11 L 112/61 94 01/19/19 12:00 01/19/19 13:31 01/19/19 13:31 01/19/19 13:31 01/19/19 13:31 General appearance: Present: no acute distress, well-nourished - EENT Eyes: Present: PERRL, EOM intact ENT: hearing intact, clear oral mucosa, dentition normal - Neck Neck: Present: supple, normal ROM - Respiratory Respiratory effort: normal Respiratory: bilateral: CTA - Cardiovascular Rhythm: regular Heart Sounds: Present: S1 & S2. Absent: gallop, rub - Extremities Extremities: no ischemia, No edema, Full ROM - Abdominal General gastrointestinal: soft, non-tender, non-distended, normal bowel sounds - Integumentary Integumentary: Present: clear, warm, dry - Neurologic Neurologic: CNII-XII intact, moves all extremities Results - Labs CBC & Chem 7: 01/17/19 19:01 01/17/19 19: Labs: Laboratory Last Values WBC 5.6 K/mm3 (4.5-11.0) 01/17/19 19: RBC 5.39 M/mm3 (3.65-5.03) H 01/17/19 19: Hgb 14.9 gm/dl (11.8-15.2) 01/17/19 19: Hct 44.6 % (35.5-45.6) 01/17/19 19: MCV 83 fl (84-94) L 01/17/19 19: MCH 28 pg (28-32) 01/17/19 19: MCHC 33 % (32-34) 01/17/19 19: RDW 14.0 % (13.2-15.2) 01/17/19 19: Plt Count 165 K/mm3 (140-440) 01/17/19 19:01 Lymph % (Auto) 21.1 % (13.4-35.0) 01/17/19 19: [place] % (Auto) 10.0 % (0.0-7.3) H 01/17/19 19:01 Eos % (Auto) 2.8 % (0.0-4.3) 01/17/19 19: Baso % (Auto) 1.0 % (0.0-1.8) 01/17/19 19: Lymph # 1.2 K/mm3 (1.2-5.4) 01/17/19 19: [place] # 0.6 K/mm3 (0.0-0.8) 01/17/19 19: Eos # 0.2 K/mm3 (0.0-0.4) 01/17/19 19: Baso # 0.1 K/mm3 (0.0-0.1) 01/17/19 19: Seg Neutrophils % 65.1 % (40.0-70.0) 01/17/19 19: Seg Neutrophils # 3.7 K/mm3 (1.8-7.7) 01/17/19 19: PT 14.3 Sec. (12.2-14.9) 01/17/19 19: INR 1.12 (0.87-1.13) 01/17/19 19: APTT 38.4 Sec. (24.2-36.6) H 01/17/19: Thrombin Time 17.4 Sec. (15.1-19.6) 01/17/19 19: Sodium 133 mmol/L (137-145) L 01/17/19 19: Potassium 5.1 mmol/L (3.6-5.0) H 01/17/19 19: Chloride 97.1 mmol/L (98-107) L 01/17/19 19: Carbon Dioxide 22 mmol/L (22-30) 01/17/19 19: Anion Gap 19 mmol/L 01/17/19 19: BUN 12 mg/dL (9-20) 01/17/19 19: Creatinine 0.8 mg/dL (0.8-1.5) 01/17/19 19:01 Estimated GFR > 60 ml/min 01/17/19 19:01 BUN/Creatinine Ratio 15 % 01/17/19 19:01 Glucose 225 mg/dL (75-100) H 01/17/19 19:01 POC Glucose 159 (70-105) H 01/19/19 06:48 Calcium 9.1 mg/dL (8.4-10.2) 01/17/19 19:01 Total Creatine Kinase 47 units/L (55-170) L 01/17/19 19:01 CK-MB (CK-2) 1.4 ng/mL (0.0-4.0) 01/17/19 19:01 CK-MB (CK-2) Rel Index 2.9 (0-4) 01/17/19 19:01 Troponin T < 0.010 ng/mL (0.00-0.029) 01/17/19 19:01 Triglycerides 125 mg/dL (2-149) 01/18/19 05:39 Cholesterol 168 mg/dL (50-199) 01/18/19 05:39 LDL Cholesterol Direct 110 mg/dL (50-130) 01/18/19 05:39 HDL Cholesterol 48 mg/dL (40-59) 01/18/19 05:39 Cholesterol/HDL Ratio 3.50 % 01/18/19 05:39 Active Medications - Current Medications Current Medications: Generic Name Dose Route Start Last Admin Trade Name Freq PRN Reason Stop Dose Admin Aspirin 325 mg 01/18/19 22:00 01/19/19 10:15 Aspirin PO 325 mg QDAY FRANCES Administration Atorvastatin Calcium 40 mg 01/18/19 22:00 01/18/19 21:01 Lipitor PO 40 mg QHS FRANCES Administration Bisacodyl 10 mg 01/17/19 23:54 Dulcolax MT QDAY PRN Constipation Magnesium Hydroxide 30 ml 01/17/19 23:54 Milk Of Magnesia PO Q4H PRN Constipation Metoclopramide HCl 10 mg 01/17/19 23:54 Reglan PO Q6H PRN Nausea And Vomiting Ondansetron HCl 4 mg 01/17/19 23:54 Zofran IV Q8H PRN Nausea And Vomiting Promethazine HCl 25 mg 01/17/19 23:54 Phenergan MT Q6H PRN Nausea And Vomiting Sodium Chloride 10 ml 01/17/19 23:54 Sodium Chloride Flush Syringe 10 Ml IV PRN PRN LINE FLUSH Tramadol HCl 50 mg 01/18/19 20:36 01/19/19 10:16 Ultram PO 50 mg Q12HR PRN Administration Pain, Moderate (4-6) Nutrition/Malnutrition Assess - Dietary Evaluation Nutrition/Malnutrition Findings: Nutrition Notes Start: 01/18/19 13:26 Freq: Status: Active Protocol: Document 01/19/19 10:01 CC (Rec: 01/19/19 10:14 CC [id number]) Co-Sign 01/19/19 10:01 LP Nutrition Notes Need for Assessment generated from: MD Order,Education Initial or Follow up Assessment Current Diagnosis Diabetes,Hypertension,Stroke, Hyperlipidemia Other Pertinent Diagnosis dysphagia Current Diet pureed diet w/ nectar thick liquids Labs/Tests reviewed Pertinent Medications reviewed Height 5 ft 9 in Weight 86.3 kg [place] Body Weight (kg) 72.72 BMI 28.0 Weight Status Appropriate Subjective/Other Information f/u for assesment and diet education. Pt is not able to speak clearly and slightly disoriented. Pt had not ate breakfast yet at the time of visit and pt shook head no when asked if he ate dinner last night. Pt shook his head yes to wanting nutrition recommendations following CVA. PT/OT came in to do an evaluation so education was not finished. Left handouts with pt and family member with ext. number to call if they would like. Per MD pt is scheduled to move to telemetry today Percent of energy/protein needs met: 0%/0% Burn Absent Trauma Absent Difficulty In Swallowing Current % PO Poor (25-49%) Minimum of two criteria No physical signs of malnutrition #1 Nutrition Diagnosis Inadequate oral intake Etiology dysphagia secondary to CVA As Evidenced by Signs and Symptoms pt not consuming dinner Diagnosis Progress(for reassessment Continues documentation) Is patient on ventilator? No Is Patient Ambulatory and/or Out of Bed No REE-([facility]-confined to bed) [phone] Calculation Used for Recommendations [facility] Additional Notes PRO: 86-104g/day (1.0-1.2g/kg) Fluid: 1ml/kcal Nutrition Intervention Change Diet Order: continue pureed diet with nectar-like thick liquid Teaching Recipient Patient,Family Learning Readiness Fair Teaching Methods Discussion,Handout Response to Teaching Unable to comprehend Education Handouts Provided Stroke Nutrition Therapy, Sodium free flavoring tips Barriers to Learning Cognitive/Verbal RD phone number provided Yes Patient aware of follow up options Yes Goal #1 Meet at least 80% of energy and protein needs with PO intakes Anticipated Discharge Needs: pureed diet with nectar thick liquids Follow-Up By: 01/21/19 Additional Comments F/U PO intakes, need for ONS, continue diet education
[2019-01-19] MEDS: INSULIN LISPRO 100 UNIT/ML SUB-Q SCH (21:32)
[2019-01-19] MEDS: INSULIN GLARGINE 100 UNITS/ML SUB-Q SCH (21:34)
[2019-01-20] MEDS: INSULIN LISPRO 100 UNIT/ML SUB-Q SCH ×6 (10:55→22:22)
[2019-01-20] MEDS: ASPIRIN 325 MG TAB PO SCH (10:55)
--- NOTE | 2019-01-20 11:49 | Progress Note ---
Assessment and Plan Assessment and plan: CVA (cerebral vascular accident) Patient has had TPA. 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 Continue aspirin, Plavix and statin. Hypertension. Continue antihypertensive medication Diabetes We will monitor Accu-Cheks and also place the patient on sliding scale insulin. Add Lantus at bedtime Hyperlipidemia Continue statins DVT prophylaxis Continued SCDs Disposition. Await speech and physical therapy recommendations for discharge planning. History Interval history: No new issues overnight Hospitalist Physical - Constitutional Vitals: Temp Pulse Resp BP Pulse Ox 97.5 F L 70 18 136/58 93 01/20/19 03:48 01/20/19 03:48 01/20/19 03:48 01/20/19 03:48 01/20/19 03:48 General appearance: Present: no acute distress, well-nourished - EENT Eyes: Present: PERRL, EOM intact ENT: hearing intact, clear oral mucosa, dentition normal - Neck Neck: Present: supple, normal ROM - Respiratory Respiratory effort: normal Respiratory: bilateral: CTA - Cardiovascular Rhythm: regular Heart Sounds: Present: S1 & S2. Absent: gallop, rub - Extremities Extremities: no ischemia, No edema, Full ROM - Abdominal General gastrointestinal: soft, non-tender, non-distended, normal bowel sounds - Integumentary Integumentary: Present: clear, warm, dry - Neurologic Neurologic: CNII-XII intact, moves all extremities Results - Labs CBC & Chem 7: 01/17/19 19:01 01/17/19 19: Labs: Laboratory Last Values WBC 5.6 K/mm3 (4.5-11.0) 01/17/19 19: RBC 5.39 M/mm3 (3.65-5.03) H 01/17/19 19: Hgb 14.9 gm/dl (11.8-15.2) 01/17/19 19: Hct 44.6 % (35.5-45.6) 01/17/19 19: MCV 83 fl (84-94) L 01/17/19 19: MCH 28 pg (28-32) 01/17/19 19: MCHC 33 % (32-34) 01/17/19 19: RDW 14.0 % (13.2-15.2) 01/17/19 19: Plt Count 165 K/mm3 (140-440) 01/17/19 19: Lymph % (Auto) 21.1 % (13.4-35.0) 01/17/19 19: Bailey % (Auto) 10.0 % (0.0-7.3) H 01/17/19 19: Eos % (Auto) 2.8 % (0.0-4.3) 01/17/19 19: Baso % (Auto) 1.0 % (0.0-1.8) 01/17/19 19: Lymph # 1.2 K/mm3 (1.2-5.4) 01/17/19: Bailey # 0.6 K/mm3 (0.0-0.8) 01/17/19: Eos # 0.2 K/mm3 (0.0-0.4) 01/17/19: Baso # 0.1 K/mm3 (0.0-0.1) 01/17/19 19: Seg Neutrophils % 65.1 % (40.0-70.0) 01/17/19: Seg Neutrophils # 3.7 K/mm3 (1.8-7.7) 01/17/19 19: PT 14.3 Sec. (12.2-14.9) 01/17/19: INR 1.12 (0.87-1.13) 01/17/19: APTT 38.4 Sec. (24.2-36.6) H 01/17/19: Thrombin Time 17.4 Sec. (15.1-19.6) 01/17/19 19: Sodium 133 mmol/L (137-145) L 01/17/19 19: Potassium 5.1 mmol/L (3.6-5.0) H 01/17/19: Chloride 97.1 mmol/L (98-107) L 01/17/19 19: Carbon Dioxide 22 mmol/L (22-30) 01/17/19 19: Anion Gap 19 mmol/L 01/17/19 19: BUN 12 mg/dL (9-20) 01/17/19: Creatinine 0.8 mg/dL (0.8-1.5) 01/17/19 19:01 Estimated GFR > 60 ml/min 01/17/19 19:01 BUN/Creatinine Ratio 15 % 01/17/19 19:01 Glucose 225 mg/dL (75-100) H 01/17/19 19:01 POC Glucose 124 (70-105) H 01/20/19 05:28 Calcium 9.1 mg/dL (8.4-10.2) 01/17/19 19:01 Total Creatine Kinase 47 units/L (55-170) L 01/17/19 19:01 CK-MB (CK-2) 1.4 ng/mL (0.0-4.0) 01/17/19 19:01 CK-MB (CK-2) Rel Index 2.9 (0-4) 01/17/19 19: Troponin T < 0.010 ng/mL (0.00-0.029) 01/17/19 19: Triglycerides 125 mg/dL (2-149) 01/18/19 05:39 Cholesterol 168 mg/dL (50-199) 01/18/19 05:39 LDL Cholesterol Direct 110 mg/dL (50-130) 01/18/19 05:39 HDL Cholesterol 48 mg/dL (40-59) 01/18/19 05:39 Cholesterol/HDL Ratio 3.50 % 01/18/19 05:39 Active Medications - Current Medications Current Medications: Generic Name Dose Route Start Last Admin Trade Name Freq PRN Reason Stop Dose Admin Aspirin 325 mg 01/18/19 22:00 01/20/19 10:55 Aspirin PO 325 mg QDAY FRANCES Administration Atorvastatin Calcium 40 mg 01/18/19 22:00 01/19/19 21:24 Lipitor PO 40 mg QHS FRANCES Administration Bisacodyl 10 mg 01/17/19 23:54 Dulcolax MO QDAY PRN Constipation Insulin Glargine 10 units 01/19/19 22:00 01/19/19 21:34 Lantus SUB-Q 10 units QHS FRANCES Administration Insulin Human Lispro 0 unit 01/19/19 22:00 01/20/19 10:57 Humalog SUB-Q Not Given Q4HR [facility] Protocol Magnesium Hydroxide 30 ml 01/17/19 23:54 Milk Of Magnesia PO Q4H PRN Constipation Metoclopramide HCl 10 mg 01/17/19 23:54 Reglan PO Q6H PRN Nausea And Vomiting Ondansetron HCl 4 mg 01/17/19 23:54 Zofran IV Q8H PRN Nausea And Vomiting Promethazine HCl 25 mg 01/17/19 23:54 Phenergan MO Q6H PRN Nausea And Vomiting Sodium Chloride 10 ml 01/17/19 23:54 01/19/19 21:40 Sodium Chloride Flush Syringe 10 Ml IV 10 ml PRN PRN Administration LINE FLUSH Tramadol HCl 50 mg 01/18/19 20:36 01/19/19 21:24 Ultram PO 50 mg Q12HR PRN Administration Pain, Moderate (4-6) Nutrition/Malnutrition Assess - Dietary Evaluation Nutrition/Malnutrition Findings: Nutrition Notes Start: 01/18/19 13:26 Freq: Status: Active Protocol: Document 01/19/19 10:01 CC (Rec: 01/19/19 10:14 CC [id number]) Co-Sign 01/19/19 10:01 LP Nutrition Notes Need for Assessment generated from: MD Order,Education Initial or Follow up Assessment Current Diagnosis Diabetes,Hypertension,Stroke, Hyperlipidemia Other Pertinent Diagnosis dysphagia Current Diet pureed diet w/ nectar thick liquids Labs/Tests reviewed Pertinent Medications reviewed Height 5 ft 9 in Weight 86.3 kg [place] Body Weight (kg) 72.72 BMI 28.0 Weight Status Appropriate Subjective/Other Information f/u for assesment and diet education. Pt is not able to speak clearly and slightly disoriented. Pt had not ate breakfast yet at the time of visit and pt shook head no when asked if he ate dinner last night. Pt shook his head yes to wanting nutrition recommendations following CVA. PT/OT came in to do an evaluation so education was not finished. Left handouts with pt and family member with ext. number to call if they would like. Per MD pt is scheduled to move to telemetry today Percent of energy/protein needs met: 0%/0% Burn Absent Trauma Absent Difficulty In Swallowing Current % PO Poor (25-49%) Minimum of two criteria No physical signs of malnutrition #1 Nutrition Diagnosis Inadequate oral intake Etiology dysphagia secondary to CVA As Evidenced by Signs and Symptoms pt not consuming dinner Diagnosis Progress(for reassessment Continues documentation) Is patient on ventilator? No Is Patient Ambulatory and/or Out of Bed No REE-([place]confined to bed) [phone] Calculation Used for Recommendations [facility] Additional Notes PRO: 86-104g/day (1.0-1.2g/kg) Fluid: 1ml/kcal Nutrition Intervention Change Diet Order: continue pureed diet with nectar-like thick liquid Teaching Recipient Patient,Family Learning Readiness Fair Teaching Methods Discussion,Handout Response to Teaching Unable to comprehend Education Handouts Provided Stroke Nutrition Therapy, Sodium free flavoring tips Barriers to Learning Cognitive/Verbal RD phone number provided Yes Patient aware of follow up options Yes Goal #1 Meet at least 80% of energy and protein needs with PO intakes Anticipated Discharge Needs: pureed diet with nectar thick liquids Follow-Up By: 01/21/19 Additional Comments F/U PO intakes, need for ONS, continue diet education
[2019-01-20] MEDS: traMADol 50 MG TAB PO PRN (14:16)
[2019-01-20] MEDS: ACETAMINOPHEN 325 MG TAB PO PRN (17:18)
--- NOTE | 2019-01-20 20:26 | Progress Note ---
Assessment and Plan Patient alert, awake. Resting on room air. Complaining slight cough. No acute respiratory distress. O2 saturation 97%. Patient afebrile. No leukocytosis. - Patient Problems (1) CVA (cerebral vascular accident) Current Visit: Yes Status: Acute Plan to address problem: Management as per primary care and neurology. (2) NSTEMI (non-ST elevated myocardial infarction) Current Visit: No Status: Chronic Plan to address problem: Management as per primary care and cardiology. (3) Diabetes Current Visit: Yes Status: Acute Plan to address problem: Management as per primary care. (4) Hyperlipidemia Current Visit: Yes Status: Acute Plan to address problem: Management as per primary care. (5) Cough Current Visit: Yes Status: Acute Plan to address problem: Obtaining chest xray to rule out aspiration. Robitussin 10 ml po q 6 hours prn for cough. Subjective Date of service: 01/20/19 Interval history: Patient alert, awake. Resting on room air. Complaining slight cough. No acute respiratory distress. O2 saturation 97%. Patient afebrile. No leukocytosis. Objective Vital Signs - 12hr 01/20/19 01/20/19 10:00 11:29 Temperature 98.8 F Pulse Rate 69 69 Respiratory 18 Rate Blood Pressure 141/58 O2 Sat by Pulse 93 Oximetry Constitutional: no acute distress, alert Eyes: non-icteric Neck: supple, no lymphadenopathy Ascultation: Bilateral: diminished breath sounds Cardiovascular: regular rate and rhythm Gastrointestinal: normoactive bowel sounds, soft, non-tender Integumentary: normal Extremities: no cyanosis, no edema Neurologic: normal mental status, pupils equal and round Psychiatric: mood appropriate CBC and BMP: 01/17/19 19:01 01/17/19 19:01 ABG, PT/INR, D-dimer: PT/INR, D-dimer PT 14.3 Sec. (12.2-14.9) 01/17/19 19:01 INR 1.12 (0.87-1.13) 01/17/19 19:01 Abnormal lab findings: Abnormal Labs 01/17/19 01/17/19 01/17/19 18:58 19:01 19:01 RBC 5.39 H MCV 83 L [place] % (Auto) 10.0 H APTT 38.4 H Sodium Potassium Chloride Glucose POC Glucose 213 H Total Creatine Kinase 01/17/19 01/18/19 01/18/19 19:01 02:02 05:36 RBC MCV [place] % (Auto) APTT Sodium 133 L Potassium 5.1 H Chloride 97.1 L Glucose 225 H POC Glucose 167 H 163 H Total Creatine Kinase 47 L 01/18/19 01/18/19 01/19/19 11:55 18:33 06:48 RBC MCV [place] % (Auto) APTT Sodium Potassium Chloride Glucose POC Glucose 212 H 169 H 159 H Total Creatine Kinase 01/19/19 01/19/19 01/20/19 12:40 20:28 01:48 RBC MCV [place] % (Auto) APTT Sodium Potassium Chloride Glucose POC Glucose 274 H 232 H 134 H Total Creatine Kinase 01/20/19 01/20/19 01/20/19 05:28 15:18 17:41 RBC MCV [place] % (Auto) APTT Sodium Potassium Chloride Glucose POC Glucose 124 H 283 H 243 H Total Creatine Kinase
[2019-01-20] MEDS ORDERED: guaiFENesin DM 200/20 MG ORAL LIQD 10 ML PO PRN (22:05)
[2019-01-20] MEDS: INSULIN GLARGINE 100 UNITS/ML SUB-Q SCH (22:28)
[2019-01-21] MEDS: ACETAMINOPHEN 325 MG TAB PO PRN ×2 (01:00→07:54)
[2019-01-21] MEDS: INSULIN LISPRO 100 UNIT/ML SUB-Q SCH ×3 (02:28→11:27)
[2019-01-21] MEDS: traMADol 50 MG TAB PO PRN (02:28)
[2019-01-21 03:40] VITALS: BP 152/62
--- NOTE | 2019-01-21 08:40 | XRay Report ---
CHEST 2 VIEWS INDICATION: cough, possible aspiration.. COMPARISON: None FINDINGS: Support devices: Pacemaker device is in position. Heart: Within normal limits. Previous CABG changes are suspected. Lungs/pleura: No acute air space or interstitial disease. No pneumothorax. Additional findings: None. IMPRESSION: No acute findings. Signer Name: Emile Cardozo Jr, MD Signed: 01/21/2019 8:36 AM Workstation Name: [id number]
--- NOTE | 2019-01-21 10:20 | Discharge Summary ---
Providers - Providers Date of Admission: 01/17/19 23:54 Date of discharge: 01/21/19 Attending physician: LUCIANA DUGGAN 01/17/19 23:54 Consult to Case Management [CONS] Routine Services Needed at Discharge: Home Health Services Notified:: family service caseworker Consult to Dietitian/Nutrition [CONS] Routine Physician Instructions: Reason For Exam: Reason for Consult: Nutrition Recommendations Reason for Consult: Diet education Occupational Therapy Evaluate and Treat [CONS] Routine Comment: Reason For Exam: Neuro deficits Physical Therapy Evaluation and Treat [CONS] Routine Comment: Reason For Exam: Neuro deficits 01/17/19 23:58 Speech Therapy Evaluation and Treat [CONS] Routine Reason For Exam: swallow eval 01/18/19 09:31 Consult to Physician [CONS] Urgent Comment: Consulting Provider: SOPHY SUE Physician Instructions: Reason For Exam: critical care management 01/19/19 09:33 Consult to Physician [CONS] Routine Comment: Consulting Provider: [facility] Physician Instructions: Reason For Exam: Acute CVA/ SP TPA Primary care physician: [employer] Hospitalization Reason for admission: CVA Condition: Stable Hospital course: This is a 78-year-old male with history of hypertension, diabetes mellitus type 2, previous CVA and hyperlipidemia previously on aspirin, Plavix and Coumadin presented through the emergency department with sudden onset of slurred speech associated with left facial droop and mild right-sided weakness. The patient was admitted with a diagnosis of CVA and received TPA with significant improvement a few hours after TPA administration. CT scan of the head did not show any acute hemorrhage or infarct. The patient was seen by neurology in consultation who felt he likely had infarct of the left brain stem, small vessel disease most likely from chronic hypertension and poor control of diabetes. MRI was recommended but patient unable to obtain due to metal per daughter. Neurology felt that there was no need for adding or subtracting any medication given by his previous regimen and he should be continued on aspirin, statin and Plavix. Neurology recommended better control of diabetes and hypertension. These decisions will need to be made by his primary care physician. PT evaluated the patient and felt that there were no knees and patient could discharge home with home health. Patient still has remaining deficit with swallowing and dysarthria and was seen by speech therapy who recommended pured diet with nectar thick liquids because of difficulty with thin liquids. Speech recommended outpatient follow-up for dysarthria. Dedicated discharge time 35 minutes. Disposition: DC-30 STILL A PATIENT - Discharge Diagnoses (1) Hypertension Status: Acute (2) CVA (cerebral vascular accident) Status: Acute (3) Hyperlipidemia Status: Acute Core Measure Documentation - Palliative Care Palliative Care/ Comfort Measures: Not Applicable - Core Measures Any of the following diagnoses?: stroke - Stroke Discharge Requirements Statin for LDL = or >70 mg/dl on DC: Yes Anticoag for atrial fib/atrial flutter: Yes Antithrombotic for ischemic stroke: Yes Exam - Constitutional Vitals: Temp Pulse Resp BP Pulse Ox 97.8 F 73 22 152/62 94 01/21/19 03:17 01/21/19 03:17 01/21/19 08:03 01/21/19 03:17 01/21/19 03:17 General appearance: Present: no acute distress, well-nourished - EENT Eyes: Present: PERRL ENT: hearing intact, clear oral mucosa - Neck Neck: Present: supple, normal ROM - Respiratory Respiratory effort: normal Respiratory: bilateral: CTA - Cardiovascular Heart Sounds: Present: S1 & S2. Absent: rub, click - Extremities Extremities: pulses symmetrical, No edema Peripheral Pulses: within normal limits - Abdominal General gastrointestinal: Present: soft, non-tender, non-distended, normal bowel sounds Male genitourinary: Present: normal - Integumentary Integumentary: Present: clear, warm, dry - Musculoskeletal Musculoskeletal: gait normal, strength equal bilaterally - Psychiatric Psychiatric: appropriate mood/affect, intact judgment & insight - Neurologic Neurologic: CNII-XII intact, moves all extremities Plan Weight Bearing Status: Weight Bear as Tolerated Diet: other (per speech therapy recommendations) Follow up with: PRIMARY CARE, [Primary Care Provider] - 3-5 Days Prescriptions: Aspirin 325 mg PO QDAY #30 tablet Dutasteride (Nf) [Avodart (Nf)] 0.5 mg PO DAILY #30 cap carvediloL [Coreg] 3.125 mg PO BID #60 tab Warfarin [Coumadin] 1 mg PO QDAY #30 tab Warfarin [Coumadin] 2.5 mg PO QDAY #30 tab AtorvaSTATin [Lipitor] 40 mg PO QHS #30 tablet Metformin HCl [metFORMIN] 1,000 mg PO BID #60 tablet Pentoxifylline 1 tab PO DAILY #30 tab Lisinopril [Zestril TAB] 2.5 mg PO QDAY #30 tab
[2019-01-21] MEDS: ASPIRIN 325 MG TAB PO SCH (11:45)
== END 2019-01-21 15:11 | disposition home or self-care (01) | DRG 61 ==
LOC: ED 17:49 → 4A 23:54 → CC1 01-18 00:26 → 4A 01-19 16:43
PROVIDERS: ADMIT Internal Medicine Geriatric Medicine; ATTEND Hospitalist
DX: I63.9 Cerebral infarction, unspecified (principal); I21.A1 Myocardial infarction type 2; G81.91 Hemiplegia, unspecified affecting right dominant side; R29.705 NIHSS score 5; R47.01 Aphasia; I10 Essential (primary) hypertension; E11.9 Type 2 diabetes mellitus without complications; E78.5 Hyperlipidemia, unspecified; Z80.1 Family history of malignant neoplasm of trachea, bronchus and lung; Z83.3 Family history of diabetes mellitus; Z87.891 Personal history of nicotine dependence; Z79.899 Other long term (current) drug therapy; Z79.82 Long term (current) use of aspirin; Z79.01 Long term (current) use of anticoagulants; Z79.84 Long term (current) use of oral hypoglycemic drugs; I25.2 Old myocardial infarction; Z95.1 Presence of aortocoronary bypass graft; Z95.810 Presence of automatic (implantable) cardiac defibrillator; Z86.73 Personal history of transient ischemic attack (TIA), and cerebral infarction without residual deficits
CPT/HCPCS: 36415; 70450; 70496; 70498; 71046; 80048; 80061; 82550; 82553; 82962; 84484; 85025; 85610; 85670; 85730; 93005; 93010; 93306; G0378; A9270-GY; J1815; J2270; J2997; J7030; Q9967